=== PATIENT | female | born 1955 | race Caucasian/White ===

== ENCOUNTER 2017-09-24 11:44 | Emergency (ER) | payer BC ==
[~2017-09-24] VITALS: Ht 167.6 cm; Wt 79.4 kg
[2017-09-24] MEDS ORDERED: CLINDAMYCIN PHOS 900MG/ D5W 50 50 ML IV STA (12:07)
[2017-09-24 13:07] LABS: HEMATOCRIT 37.4 % (34.2-44.1); HEMOGLOBIN 12.4 g/dL (12.0-16.0); MEAN CORPUSCULAR HGB CONC 33.2 g/dL (31-35); MEAN CORPUSCULAR VOLUME 87.4 fL (81-99); PLATELET COUNT 212 x10e3/uL (140-360); RED BLOOD COUNT 4.28 x10e6/uL (3.6-5.1); RED CELL DISTRIBUTION WIDTH 13.2 % (11.7-14.4)
[2017-09-24] MEDS ORDERED: KETOROLAC TROMETHAMINE 30 MG/ML VIAL IV STA (13:09)
[2017-09-24 13:27] LABS: EOSINOPHILS % (MANUAL) 1 % (0-7); LYMPHOCYTES % (MANUAL) 11 % (19-48); MONOCYTES % (MANUAL) 1 % (3.4-9.0); NEUTROPHILS % (MANUAL) 87 % (40-74); PLATELET ESTIMATE ADEQUATE; PLATELET MORPHOLOGY COMMENT NORMAL; RBC MORPHOLOGY COMMENT NORMAL
== END 2017-09-24 16:40 | disposition home or self-care (01) ==
LOC: ER 11:44
DX: L02.01 Cutaneous abscess of face (principal)
CPT/HCPCS: 99283; J1885

== ENCOUNTER 2017-09-26 09:40 | Inpatient (IN) | payer BC ==
[~2017-09-26] VITALS: Ht 167.6 cm; Wt 82.2 kg
--- OUTSIDE RECORDS SUMMARY | 2017-09-26 09:42 | XMS REPORT | Continuity of Care Document ---
Author Author [facility] Organization [facility] Address [address] [place] [address] Phone Unavailable Care Team Providers Care Architectural Engineering Teacher Name Role Phone DARRYL TEMPLETON MD PCP Advance Directives No advance directive information available. Problems No problem information available. Medications No medication information available. Social History Smoking Status Start Date Stop Date Never Smoker Hospital Discharge Instructions No hospital discharge instruction information available. Plan of Care Discharge Date 09/24/17 4:40pm Disposition HOME, SELF-CARE Condition at Discharge Stable Instructions/Education Provided Rash - Nonspecific Forms Provided Work/School Excuse Prescriptions See Medication Section Referrals DARRYL TEMPLETON MD Address: [address] [place] [address] Additional Instructions/Education FOLLOW UP WITH PCP TAKE ABT ORDERED Functional Status No functional status information available. Allergies, Adverse Reactions, Alerts Allergen Type Severity Reaction Status Last Updated Penicillin Allergy Severe ra Active 09/24/17 Immunizations No immunization information available. Vital Signs Acute Vital Signs Vital Response Date/Time Height 5 ft 6 in 09/24/2017 12:06pm Weight 175 lb 09/24/2017 12:06pm Body Mass Index 28.2 kg/m^2 09/24/2017 12:06pm Results Laboratory Results Test Name Result Units Flags Reference Collection Date/Time Result Date/ Time Comments White Blood Count 10.07 x10e3/uL 4.8-10.8 09/24/2017 12:42pm 2017 1:08pm Red Blood Count 4.28 x10e6/uL 3.6-5.1 09/24/2017 12:42pm 09/24/2017 1: 08pm Hemoglobin 12.4 g/dL 12.0-16.0 09/24/2017 12:42pm 09/24/2017 1:08pm Hematocrit 37.4 % 34.2-44.1 09/24/2017 12:42pm 09/24/2017 1:08pm Mean Corpuscular Volume 87.4 fL 81-99 09/24/2017 12:42pm 09/24/2017 1: 08pm Mean Corpuscular Hemoglobin 29.0 pg 28-32 09/24/2017 12:42pm 2017 1:08pm Mean Corpuscular Hemoglobin Concent 33.2 g/dL 31-35 09/24/2017 12:42pm 09/24/2017 1:08pm Red Cell Distribution Width 13.2 % 11.7-14.4 09/24/2017 12:42pm 2017 1:08pm Platelet Count 212 x10e3/uL 140-360 09/24/2017 12:42pm 09/24/2017 1: 08pm Differential Total Cells Counted 100 09/24/2017 12:42pm 09/24/2017 1:27pm Neutrophils % (Manual) 87 % H 40-74 09/24/2017 12:42pm 09/24/2017 1: 27pm Lymphocytes % (Manual) 11 % L 19-48 09/24/2017 12:42pm 09/24/2017 1: 27pm Monocytes % (Manual) 1 % L 3.4-9.0 09/24/2017 12:42pm 09/24/2017 1:27pm Eosinophils % (Manual) 1 % 0-7 09/24/2017 12:42pm 09/24/2017 1:27pm Platelet Estimate ADEQUATE 09/24/2017 12:42pm 09/24/2017 1:27pm Platelet Morphology Comment NORMAL 09/24/2017 12:42pm 09/24/2017 1: 27pm Red Cell Morphology Comment NORMAL 09/24/2017 12:42pm 09/24/2017 1: 27pm Procedures No procedure information available. Encounters Encounter Location Arrival/Admit Date Discharge/Depart Date Attending Provider Departed Emergency Room [facility] 09/24/17 11:44am 09/24 4:40pm CORA ZELAYA MD
[2017-09-26 10:20] LABS: BASOPHILS # (AUTO) 0.1 (0.0-0.1); BASOPHILS % 0.4 % (0.0-1.0); EOSINOPHILS # (AUTO) 0.1 (0.0-0.4); EOSINOPHILS % 1.1 % (0.0-6.0); HEMATOCRIT 36.2 % (34.2-44.1); LYMPHOCYTES # (AUTO) 1.4 (1.0-3.2); LYMPHOCYTES % 12.2 % (18.0-39.1); MEAN CORPUSCULAR HEMOGLOBIN 29.3 pg (28-32); MEAN CORPUSCULAR HGB CONC 33.1 g/dL (31-35); MEAN CORPUSCULAR VOLUME 88.3 fL (81-99); MONOCYTES # (AUTO) 0.7 (0.2-0.8); MONOCYTES % 6.1 % (4.4-11.3); NEUTROPHILS # (AUTO) 9.1 (2.1-6.9); NEUTROPHILS % 79.9 % (38.7-80.0); PLATELET COUNT 230 x10e3/uL (140-360); RED CELL DISTRIBUTION WIDTH 13.2 % (11.7-14.4)
[2017-09-26 10:36] LABS: ALANINE AMINOTRANSFERASE 22 IU/L (0-55); ALBUMIN 3.9 g/dL (3.5-5.0); ALBUMIN/GLOBULIN RATIO 1.1 (0.8-2.0); ALKALINE PHOSPHATASE 74 IU/L (40-150); ANION GAP 12.9 mmol/L (8-16); BLOOD UREA NITROGEN 10 mg/dL (7-26); BUN/CREATININE RATIO 14 (6-25); CALCIUM 10.2 mg/dL (8.4-10.2); CARBON DIOXIDE 28 mmol/L (22-29); CHLORIDE 101 mmol/L (98-107); CREATININE, SERUM 0.71 mg/dL (0.57-1.11); EST GLOMERULAR FILTRATION RATE > 60 ML/MIN (60-); GLUCOSE 104 mg/dL (74-118); POTASSIUM 3.9 mmol/L (3.5-5.1); SODIUM 138 mmol/L (136-145)
[2017-09-26] MEDS ORDERED: KETOROLAC TROMETHAMINE 30 MG/ML VIAL IV STA (10:51)
[2017-09-26] MEDS: CEFTRIAXONE SOD 1 GM VIAL IV SCH ×2 (11:06→21:15)
[2017-09-26] MEDS ORDERED: VANCOMYCIN 1GM/NS 250 ML 250 ML IV ONE (11:15)
--- NOTE | 2017-09-26 12:57 | Diagnostic Imaging Report ---
Exam: Maxillofacial CT with IV contrast History:Facial cellulitis, lip swelling Comparison studies: None Technique: Axial images were obtained through the facial region. Coronal and sagittal images reconstructed from the axial data. Intravenous contrast: 100 cc of Omnipaque 300. Findings: Soft tissues: Reactive changes with edema, enhancement in the right upper lip. There is a 2.4 cm rim-enhancing fluid collection in the right paramedian lower lip which extends along the philtrum in the right infranasal soft tissues. There are reactive changes compatible with cellulitis within the buccal periventricular soft tissues, right greater than left. There are no erosive changes in the underlying maxilla to suggest associated ostium myelitis. Lymph nodes: There are prominent enhancing bilateral submandibular (level IB) lymph nodes which measure up to 1.4 cm and enhancing right suprahyoid jugular chain (level IIA) lymph nodes which also measure up to 1.4 cm. Bones: No fractures or bony abnormalities. Dentition: Multiple absent teeth. Root canal changes at the right lateral maxillary incisor with subtle periapical lucency along the tooth root. Additional root canal changes at the left maxillary second premolar is and first molar and left mandibular second premolar. There is moderate alveolar obstruction along the most posterior right mandibular molar. Orbits: Globes: Intact. Extra or intraconal abnormalities: None. Paranasal sinuses: Clear. Included cervical spine: Moderately degenerated disks from C4 to C7 with loss of disc height and disc osteophyte complexes which indent the thecal sac and result in mild canal stenosis at C5-C6. Multilevel foraminal stenosis due to uncovertebral and facet arthrosis (moderate right and mild left at C3-C4, mild left at C4-C5, moderate right and mild left at C5-C6 and mild bilaterally at C6-C7). IMPRESSION: 1. Rim-enhancing 2.4 cm fluid collection compatible with abscess in the right paramedian upper lip which extends to the midline infranasal soft tissues along the philtrum with surrounding cellulitis and phlegmon and regional cellulitic changes in the right greater than left perimandibular soft tissues. 2. Associated reactive bilateral submandibular and right suprahyoid jugular chain lymphadenopathy. Findings discussed with Dr. Laura at 12:45 PM on 09/26/2017. Signed by: Dr. Juan Cheema M.D. on 09/26/2017 12:53 PM
[2017-09-26] MEDS ORDERED: ONDANSETRON HCL INJ 2 MG/ML VIAL IV PRN (13:00)
[2017-09-26] MEDS ORDERED: HYDROMORPHONE 1MG/1ML INJ IV PRN (13:00)
[2017-09-26] MEDS: D5.45%NS/KCL 20MEQ 1,000 ML IV SCH (13:24)
--- OUTSIDE RECORDS SUMMARY | 2017-09-26 14:03 | XMS REPORT ---
Author Author [facility] Address Unknown Phone Unavailable Care Team Providers Care Medical Office Manager Name Role Phone CORA NELSON Unavailable Unavailable Problems This patient has no known problems. Allergies, Adverse Reactions, Alerts This patient has no known allergies or adverse reactions. Medications This patient has no known medications. Results Test Description Test Time Test Comments Text Results Atomic Results Result Comments CT MAX FAC/PARANASAL W [place] [address] Patient Name: MAHI FLOREZ MR #: [id number] : 1955 Age/Sex: 62/F Req #: [id number] Adm Physician: Ordered by: CORA NELSON MD Report #: [id number] Location: ER Room/Bed: Procedure: [id number] CT/CT MAX FAC/PARANASAL W Exam Date: 09/26/17 Exam Time: 1130 REPORT STATUS: Signed Exam: Maxillofacial CT with IV contrast History:Facial cellulitis, lip swelling Comparison studies: None Technique: Axial images were obtained through the facial region. Coronal and sagittal images reconstructed from the axial data. Intravenous contrast: 100 cc of Omnipaque 300. Findings: Soft tissues: Reactive changes with edema, enhancement in the right upper lip. There is a 2.4 cm rim-enhancing fluid collection in the right paramedian lower lip which extends along the philtrum in the right infranasal soft tissues. There are reactive changes compatible with cellulitis within the buccal periventricular soft tissues, right greater than left. There are no erosive changes in the underlying maxilla to suggest associated ostium myelitis. Lymph nodes: There are prominent enhancing bilateral submandibular (level IB) lymph nodes which measure up to 1.4 cm and enhancing right suprahyoid jugular chain (level IIA) lymph nodes which also measure up to 1.4 cm. Bones: No fractures or bony abnormalities. Dentition: Multiple absent teeth. Root canal changes at the right lateral maxillary incisor with subtle periapical lucency along the tooth root. Additional root canal changes at the left maxillary second premolar is and first molar and left mandibular second premolar. There is moderate alveolar obstruction along the most posterior right mandibular molar. Orbits: Globes: Intact. Extra or intraconal abnormalities: None. Paranasal sinuses: Clear. Included cervical spine: Moderately degenerated disks from C4 to C7 with loss of disc height and disc osteophyte complexes which indent the thecal sac and result in mild canal stenosis at C5-C6. Multilevel foraminal stenosis due to uncovertebral and facet arthrosis (moderate right and mild left at C3-C4, mild left at C4-C5, moderate right and mild left at C5-C6 and mild bilaterally at C6-C7). IMPRESSION: 1. Rim-enhancing 2.4 cm fluid collection compatible with abscess in the right paramedian upper lip which extends to the midline infranasal soft tissues along the philtrum with surrounding cellulitis and phlegmon and regional cellulitic changes in the right greater than left perimandibular soft tissues. 2. Associated reactive bilateral submandibular and right suprahyoid jugular chain lymphadenopathy. Findings discussed with Dr. Nelson at 12:45 PM on 2017. Signed by: Dr. Betty Cheema M.D. on 09/26/2017 12:53 PM Dictated By: BETTY CHEEMA MD [id number] Transcribed By: VIVEK on 09/26/17 125 COPY TO: CORA NELSON MD
[2017-09-26 15:14] VITALS: BP 145/85
[2017-09-26 15:15] VITALS: BP 145/85
[2017-09-26] MEDS: HYDROMORPHONE 2MG/ML INJ IV PRN ×2 (15:31→18:13)
[2017-09-26] MEDS: ONDANSETRON HCL 4 MG ORAL DISINTEGRATING TAB SL PRN (19:06)
[2017-09-26 20:00] VITALS: BP 119/58
[2017-09-26] MEDS: VANCOMYCIN 1GM/NS 250 ML 250 ML IV SCH (21:41)
[2017-09-26 22:01] VITALS: BP 119/58
[2017-09-26] MEDS ORDERED: IOPAMIDOL 370 MG/ML 200 ML INFUS..BTL INJ ONE (22:15)
[2017-09-26] MEDS ORDERED: SODIUM CHLORIDE 0.9% 50ML 50 ML ONE (22:15)
[2017-09-27] MEDS: HYDROMORPHONE 2MG/ML INJ IV PRN ×5 (00:21→22:05)
[2017-09-27] MEDS: ONDANSETRON HCL 4 MG ORAL DISINTEGRATING TAB SL PRN (00:24)
[2017-09-27] MEDS: ACETAMINOPHEN 325 MG TAB PO PRN ×2 (00:28→16:35)
[2017-09-27] MEDS: D5.45%NS/KCL 20MEQ 1,000 ML IV SCH (04:23)
[2017-09-27 04:24] VITALS: BP 122/56
[2017-09-27 06:11] LABS: BASOPHILS # (AUTO) 0.1 (0.0-0.1); BASOPHILS % 0.4 % (0.0-1.0); EOSINOPHILS # (AUTO) 0.1 (0.0-0.4); HEMOGLOBIN 10.2 g/dL (12.0-16.0); LYMPHOCYTES # (AUTO) 1.6 (1.0-3.2); LYMPHOCYTES % 13.4 % (18.0-39.1); MEAN CORPUSCULAR HEMOGLOBIN 28.9 pg (28-32); MEAN CORPUSCULAR HGB CONC 31.9 g/dL (31-35); MEAN CORPUSCULAR VOLUME 90.7 fL (81-99); MONOCYTES # (AUTO) 0.9 (0.2-0.8); NEUTROPHILS # (AUTO) 8.9 (2.1-6.9); NEUTROPHILS % 76.9 % (38.7-80.0); PLATELET COUNT 198 x10e3/uL (140-360); RED BLOOD COUNT 3.53 x10e6/uL (3.6-5.1); RED CELL DISTRIBUTION WIDTH 13.1 % (11.7-14.4)
[2017-09-27 06:57] LABS: ANION GAP 11.1 mmol/L (8-16); BLOOD UREA NITROGEN 11 mg/dL (7-26); BUN/CREATININE RATIO 17 (6-25); CALCIUM 9.5 mg/dL (8.4-10.2); CARBON DIOXIDE 28 mmol/L (22-29); CHLORIDE 104 mmol/L (98-107); CREATININE, SERUM 0.65 mg/dL (0.57-1.11); EST GLOMERULAR FILTRATION RATE > 60 ML/MIN (60-); GLUCOSE 108 mg/dL (74-118); POTASSIUM 4.1 mmol/L (3.5-5.1); SODIUM 139 mmol/L (136-145)
[2017-09-27 07:42] VITALS: BP 104/55
[2017-09-27 08:00] VITALS: BP 104/55
[2017-09-27] MEDS: CEFEPIME HCL 1 GM VIAL IV SCH ×2 (08:17→21:54)
[2017-09-27] MEDS: VANCOMYCIN 1GM/NS 250 ML 250 ML IV SCH ×2 (08:57→22:32)
--- NOTE | 2017-09-27 11:38 | History and Physical ---
CHIEF COMPLAINT: Right-sided face swelling, right-sided nose infection and right upper lip infection. HPI: This is a 62-year-old female with no significant past medical history was having right-sided face and nose swelling and infection. Last week on Sunday went to the ER and put on p.o. clindamycin and not getting better. Went to the ER again on Sunday, and continued same medicine with IV antibiotics of 1 dose, but not getting better. Came to my office yesterday with severe swelling and pain on the right side of the face. Nose was swollen. In the upper lip and nose on the right side there is a possible abscess. Pain locally. Fever. Having mild nausea. Unable to eat because of the pain and swelling on the face. No chest pain. No shortness of breath. No diarrhea. No leg pain. No leg swelling. PAST MEDICAL HISTORY: None. PAST SURGICAL HISTORY: None. HABITS: Denies smoking, alcohol. FAMILY HISTORY: Noncontributory. MEDICATIONS: Clindamycin and Bactroban ointment. ALLERGIES: NO KNOWN DRUG ALLERGIES. REVIEW OF SYSTEMS GENERAL: Denies weakness. HEENT: No diplopia. No headache. CARDIOPULMONARY: No chest pain. No cough. GI: No hematemesis, nausea, vomiting, or diarrhea. No constipation. GENITOURINARY: Denies dysuria or hematuria. MUSCULOSKELETAL: No joint pain. No cyanosis. NEURO: No focal weakness or seizure. PHYSICAL EXAMINATION GENERAL: A 62-year-old female who is alert and oriented times 3. No gross deficits. VITALS: Temperature 100.2, pulse 100, respiratory rate 18, blood pressure 130/84. HEENT: Head with no trauma. On the face right side between the right nostril and upper lip, there is an abscess. There is tenderness. There is swelling. There is redness. The face is swollen. Eyes are normal. Pupils bilaterally equal reacting to light. Extraocular muscles intact. NECK: Supple. No JVD. No carotid bruit. SKIN: Dry. LUNGS: Clear to auscultation and percussion bilaterally. No added sounds. HEART: S1 and S2. Regular rate and rhythm. No evidence of murmur. ABDOMEN: Soft and nontender. No guarding. No rigidity. EXTREMITIES: No edema. Peripheral pulses were normal. NEURO: Grossly nonfocal. CT of the head shows abscess, 2 x 3 cm on the right nostril and upper lip. CBC mildly elevated white count. CMP normal. ASSESSMENT: Nares and face right-sided cellulitis with abscess. PLAN: Admit the patient to medical floor. IV vancomycin and IV Rocephin. Plastic surgery consult with for possible I and D. ID consult with Dr. Hines. Case discussed with the patient of condition and prognosis. Pain medication, Tylenol 500 mg q.6 h. p.r.n. for fever. Job#: [id number] RAHAT
[2017-09-27] MEDS ORDERED: BACITRACIN 50,000 UNIT VIAL ONE (11:50)
[2017-09-27] MEDS ORDERED: MUPIROCIN 2% OINT 22 GM TUBE ONE (11:50)
[2017-09-27] MEDS ORDERED: LIDOCAINE 1% W/EPINEPHRINE 20 ML VIAL ONE (12:00)
[2017-09-27] MEDS ORDERED: LIDOCAINE HCL 1% LOCAL INJ 20 ML VIAL ONE (12:00)
--- NOTE | 2017-09-27 12:26 | Consultation ---
DATE OF CONSULTATION: September 27, 2017 This is a patient of Dr. Alden Mendes. This is a 62-year-old female located at [facility] in [place]. HISTORY OF PRESENT ILLNESS: Ms. Simental is a pleasant 62-year-old female who is admitted to [facility] complaining of right upper lip swelling and tenderness, which is progressively getting worse. It started about 8 days ago. Now, pain is radiating to the jaw on the right side and also started to cause some right ear infection. No nausea, vomiting, fever, chills, chest pain, or shortness of breath with it. Patient reported to emergency room, admitted. CT of the face shows enhancing 2.4-cm fluid collection compatible with abscess in the right paramedian upper lip, which extends to the midline infranasal soft tissue along the philtrum with surrounding cellulitis and phlegmon and regional cellulitic changes in the right greater than left perimandibular soft tissue. Also, patient has no problem with breathing, but has not been able to eat for the past few days secondary to pain. PAST MEDICAL HISTORY: Patient denied significant past medical history. ALLERGIES: PATIENT IS ALLERGIC TO PENICILLIN. LABORATORY AND DIAGNOSTIC STUDIES: White count 11.56 and platelet count of 198. Creatinine is 0.65. CT of the face as mentioned above. Blood culture is pending. MEDICATIONS: Medication list has been reviewed. As far as infectious disease's point of view, the patient is on vancomycin and cefepime. REVIEW OF SYSTEMS: No nausea, vomiting, fever, chills, chest pain, or shortness of breath. She has difficulty eating and chewing, but breathing has not been compromised. PHYSICAL EXAMINATION GENERAL: Alert, oriented, and pleasant, in bed, in no acute distress. VITAL SIGNS: Temperature is 100.6, T-max was reaching 101 this morning at about 7:42, pulse 67, respirations 18, and blood pressure is 145/85. HEENT: Moist. Upper lip is swollen and it seems to be extending a little bit towards the nose and maybe a little bit towards the cheeks, but it is tender. CV: S1 and S2. CHEST: Equal expansion, no acute distress. ABDOMEN: Soft, nontender, and nondistended. Bowel sounds positive. EXTREMITIES: Moves all extremities. ASSESSMENT AND PLAN: A pleasant 62-year-old female with cellulitis and abscess of the upper lip, seems like more located towards the right. The plan is for the I and D of the abscess. We will continue with the antibiotics at the present time that she is on and then follow up patient, follow up with the cultures, and follow up with the blood culture as well. Further management of this patient is based on daily findings on laboratory and physical examination. I want to thank you for this consult and will follow up with up you. This case was discussed with Dr. Hines in detail. Dictated by: Elio Kirk Job#: [id number] SUB
[2017-09-27] MEDS ORDERED: ACETAMINOPHEN 1000 MG/100 ML 100 ML IV ONE (12:31)
--- NOTE | 2017-09-27 14:48 | Consultation ---
DATE OF CONSULTATION: September 26, 2017 PLASTIC SURGERY CONSULTATION PHYSICIAN REQUESTING CONSULTATION: Dr. Vinh Mendes. REASON FOR CONSULTATION: Facial abscess. HISTORY OF PRESENT ILLNESS: The patient is a 62-year-old female who states that approximately 10 days ago she started to develop pain and swelling on the right lower area of the nostril. She denies any antecedent pimple, puncture wound or any other antecedent event, which could have accounted for the development of the pain and swelling. She states it progressed over the course of several days. She then noted the right upper lip became very swollen and painful as well. She came to the emergency room today and was found on CT scan to have an abscess involving the deep tissues of the right upper lip and the nasal floor. Consultation is now requested of plastic surgery for this condition. PAST MEDICAL AND PAST SURGICAL HISTORY: Noncontributory to the current problem. She is a smoker. LABS: Admission laboratory shows an elevated white blood cell count to 11.5. PHYSICAL EXAMINATION: On pertinent physical exam, the right upper lip is tensely swollen. It is exquisitely tender to palpation. There are swelling and erythema of the base of the right nostril as well. Intraoral exam is limited due to tenderness, but there does not appear to be any intraoral extension, but note is made of dental caries. IMPRESSION: Facial abscess. PLAN: The patient was started on intravenous antibiotics. She will be kept n.p.o. after midnight tonight. Then she will have incision and drainage in the morning. Thank you for allowing me to participate in the care of your patient. Job#: [id number]
--- NOTE | 2017-09-27 14:53 | Operative Report ---
DATE OF PROCEDURE: September 27, 2017 PREOPERATIVE DIAGNOSIS: Right facial abscess, subfascial. POSTOPERATIVE DIAGNOSIS: Right facial abscess, subfascial. PROCEDURE PERFORMED: Incision and drainage of subfascial facial abscess. ANESTHESIA: IV sedation/local. HISTORY: Patient is a 62-year-old female who was admitted yesterday with diagnosis of a facial abscess. The risks, benefits and alternatives of treatment were discussed with the patient. She is prepared to undergo the procedures outlined. DETAILS OF PROCEDURE: Patient was marked preoperatively in the holding area. She was brought to the operating theater. After the induction of adequate IV sedation, she was prepped and draped in a supine position. A time out was performed. The procedure was begun by infiltrating the entire floor of the right nostril and the right upper lip area with 1% Xylocaine with epinephrine, approximately 10 mL was used. After waiting an appropriate amount of time for maximum vasoconstrictive and maximum analgesic effect, an incision was made in the base of the nostril through the skin and subcutaneous tissues. A hemostat was then used to puncture through the fascia and get into the subfascial area. The abscess cavity was immediately entered, and purulent exudate was encountered. This was cultured and sent for both aerobic and anaerobic studies. At this point, the hemostat was used to break up all loculations all the way down to the right upper lip area. Using a 60-mL syringe and an Angiocath, the abscess cavity was irrigated with antibiotic-containing solution, approximately 150 mL was utilized until the effluent was clear. At this point, 1/4-inch packing was then placed into the wound and abscess cavity. A dressing and Bactroban ointment were applied. Patient was returned to the recovery room in satisfactory condition. Estimated blood loss for the procedure was 10 to 15 mL. She tolerated the procedure well. Job#: [id number]
[2017-09-27 15:53] VITALS: BP 107/47
[2017-09-27] MEDS ORDERED: PROPOFOL IV EMULSION 10 MG/ML 20 ML VIAL ONE (17:54)
[2017-09-27] MEDS ORDERED: MIDAZOLAM HCL 2 MG/2 ML VIAL ONE (18:30)
[2017-09-27] MEDS ORDERED: FENTANYL CITRATE/PF 100MCG/2 ML INJ ONE (18:30)
[2017-09-27 20:00] VITALS: BP 93/51
[2017-09-27 22:37] VITALS: BP 93/51
[2017-09-28] VITALS (7 sets, daily range): BP systolic 112–135; BP diastolic 53–59
[2017-09-28] MEDS: D5.45%NS/KCL 20MEQ 1,000 ML IV SCH (01:02)
[2017-09-28] MEDS: ACETAMINOPHEN 325 MG TAB PO PRN ×2 (01:02→17:40)
[2017-09-28 06:53] LABS: BASOPHILS % 0.4 % (0.0-1.0); EOSINOPHILS # (AUTO) 0.2 (0.0-0.4); EOSINOPHILS % 1.7 % (0.0-6.0); HEMATOCRIT 31.5 % (34.2-44.1); HEMOGLOBIN 10.2 g/dL (12.0-16.0); LYMPHOCYTES # (AUTO) 1.2 (1.0-3.2); LYMPHOCYTES % 11.1 % (18.0-39.1); MEAN CORPUSCULAR HEMOGLOBIN 28.5 pg (28-32); MEAN CORPUSCULAR HGB CONC 32.4 g/dL (31-35); MONOCYTES # (AUTO) 0.7 (0.2-0.8); MONOCYTES % 6.8 % (4.4-11.3); NEUTROPHILS # (AUTO) 8.6 (2.1-6.9); NEUTROPHILS % 79.5 % (38.7-80.0); PLATELET COUNT 200 x10e3/uL (140-360); RED BLOOD COUNT 3.58 x10e6/uL (3.6-5.1); RED CELL DISTRIBUTION WIDTH 12.7 % (11.7-14.4)
[2017-09-28 07:08] LABS: ANION GAP 11.9 mmol/L (8-16); BLOOD UREA NITROGEN 8 mg/dL (7-26); BUN/CREATININE RATIO 13 (6-25); CALCIUM 9.3 mg/dL (8.4-10.2); CARBON DIOXIDE 28 mmol/L (22-29); CHLORIDE 103 mmol/L (98-107); CREATININE, SERUM 0.62 mg/dL (0.57-1.11); EST GLOMERULAR FILTRATION RATE > 60 ML/MIN (60-); GLUCOSE 108 mg/dL (74-118); POTASSIUM 3.9 mmol/L (3.5-5.1); SODIUM 139 mmol/L (136-145)
[2017-09-28] MEDS: HYDROMORPHONE 2MG/ML INJ IV PRN ×2 (08:03→17:40)
[2017-09-28] MEDS: CEFEPIME HCL 1 GM VIAL IV SCH ×2 (08:04→20:00)
[2017-09-28] MEDS ORDERED: LIDOCAINE 1% W/EPINEPHRINE 20 ML VIAL INJ NR (09:00)
[2017-09-28] MEDS ORDERED: MUPIROCIN 2% OINT 22 GM TUBE TOP ONE (09:00)
[2017-09-28] MEDS ORDERED: LIDOCAINE HCL 1% 2 ML AMP INJ ONE (09:00)
[2017-09-28] MEDS ORDERED: EPINEPHRINE HCL SYRINGE IV ONE (09:00)
[2017-09-28] MEDS: VANCOMYCIN 1GM/NS 250 ML 250 ML IV SCH ×2 (09:27→21:00)
[2017-09-28] MEDS: ONDANSETRON HCL 4 MG ORAL DISINTEGRATING TAB SL PRN (17:40)
[2017-09-29] VITALS (8 sets, daily range): BP systolic 119–137; BP diastolic 55–61
[2017-09-29] MEDS: PANTOPRAZOLE SOD 40 MG TABEC PO SCH (08:21)
[2017-09-29] MEDS ORDERED: BISACODYL 5 MG TAB EC PO PRN (10:15)
[2017-09-29] MEDS: VANCOMYCIN 1GM/NS 250 ML 250 ML IV SCH ×2 (10:32→20:15)
[2017-09-29] MEDS: CEFEPIME HCL 1 GM VIAL IV SCH ×2 (10:32→20:00)
[2017-09-29 10:35] LABS: BASOPHILS # (AUTO) 0.1 (0.0-0.1); BASOPHILS % 0.7 % (0.0-1.0); EOSINOPHILS # (AUTO) 0.2 (0.0-0.4); EOSINOPHILS % 3.2 % (0.0-6.0); HEMATOCRIT 31.8 % (34.2-44.1); HEMOGLOBIN 10.3 g/dL (12.0-16.0); LYMPHOCYTES % 14.8 % (18.0-39.1); MEAN CORPUSCULAR HEMOGLOBIN 28.5 pg (28-32); MEAN CORPUSCULAR HGB CONC 32.4 g/dL (31-35); MEAN CORPUSCULAR VOLUME 87.8 fL (81-99); MONOCYTES # (AUTO) 0.3 (0.2-0.8); MONOCYTES % 4.8 % (4.4-11.3); NEUTROPHILS # (AUTO) 5.3 (2.1-6.9); NEUTROPHILS % 76.1 % (38.7-80.0); PLATELET COUNT 221 x10e3/uL (140-360); RED BLOOD COUNT 3.62 x10e6/uL (3.6-5.1); RED CELL DISTRIBUTION WIDTH 12.6 % (11.7-14.4)
[2017-09-29] MEDS: CHLORHEXIDINE GLUCONATE 0.12% SOLN 473 ML BTL MT SCH ×3 (13:21→20:15)
[2017-09-30 00:14] VITALS: BP 141/63
[2017-09-30 05:40] VITALS: BP 125/60
[2017-09-30 06:47] LABS: BASOPHILS # (AUTO) 0.1 (0.0-0.1); BASOPHILS % 0.8 % (0.0-1.0); EOSINOPHILS # (AUTO) 0.3 (0.0-0.4); EOSINOPHILS % 4.4 % (0.0-6.0); HEMATOCRIT 31.6 % (34.2-44.1); HEMOGLOBIN 10.3 g/dL (12.0-16.0); LYMPHOCYTES # (AUTO) 1.3 (1.0-3.2); LYMPHOCYTES % 20.7 % (18.0-39.1); MEAN CORPUSCULAR HEMOGLOBIN 28.4 pg (28-32); MEAN CORPUSCULAR HGB CONC 32.6 g/dL (31-35); MEAN CORPUSCULAR VOLUME 87.1 fL (81-99); MONOCYTES # (AUTO) 0.5 (0.2-0.8); MONOCYTES % 7.7 % (4.4-11.3); NEUTROPHILS # (AUTO) 4.1 (2.1-6.9); NEUTROPHILS % 66.1 % (38.7-80.0); PLATELET COUNT 232 x10e3/uL (140-360); RED BLOOD COUNT 3.63 x10e6/uL (3.6-5.1); RED CELL DISTRIBUTION WIDTH 12.6 % (11.7-14.4)
[2017-09-30 07:14] LABS: ALANINE AMINOTRANSFERASE 18 IU/L (0-55); ALBUMIN 3.1 g/dL (3.5-5.0); ALBUMIN/GLOBULIN RATIO 0.9 (0.8-2.0); ALKALINE PHOSPHATASE 62 IU/L (40-150); ANION GAP 12.1 mmol/L (8-16); BLOOD UREA NITROGEN 10 mg/dL (7-26); BUN/CREATININE RATIO 15 (6-25); CALCIUM 9.9 mg/dL (8.4-10.2); CARBON DIOXIDE 31 mmol/L (22-29); CHLORIDE 105 mmol/L (98-107); CREATININE, SERUM 0.65 mg/dL (0.57-1.11); EST GLOMERULAR FILTRATION RATE > 60 ML/MIN (60-); GLUCOSE 107 mg/dL (74-118); POTASSIUM 4.1 mmol/L (3.5-5.1); SODIUM 144 mmol/L (136-145)
[2017-09-30 07:36] VITALS: BP 121/58
[2017-09-30 07:45] VITALS: BP 121/58
[2017-09-30] MEDS: PANTOPRAZOLE SOD 40 MG TABEC PO SCH (09:30)
[2017-09-30] MEDS: CEFEPIME HCL 1 GM VIAL IV SCH (09:30)
[2017-09-30] MEDS: VANCOMYCIN 1GM/NS 250 ML 250 ML IV SCH (09:31)
[2017-09-30] MEDS: CHLORHEXIDINE GLUCONATE 0.12% SOLN 473 ML BTL MT SCH ×2 (09:31→13:22)
[2017-09-30 11:56] VITALS: BP 159/70
[2017-09-30] MEDS ORDERED: DOXYCYCLINE HY100 MG PO (14:36)
[2017-09-30] MEDS ORDERED: CIPRO500 MG PO (14:36)
[2017-09-30] MEDS ORDERED: HYDROMORPHONE 2MG/ML INJ IV NR (14:45)
== END 2017-09-30 15:32 | disposition home or self-care (01) | DRG 155 ==
LOC: ER 09:40 → ERHOLD 14:00 → MED/SURG3 14:30
PROVIDERS: ADMIT Internal Medicine; ATTEND Internal Medicine
PROC: 0J910ZX Drainage of Face Subcutaneous Tissue and Fascia, Open Approach, Diagnostic (ICD-10-PCS; principal; 2017-09-27 12:03)
DX: J34.0 Abscess, furuncle and carbuncle of nose (principal); L03.211 Cellulitis of face; M72.8 Other fibroblastic disorders; Z85.3 Personal history of malignant neoplasm of breast; Z88.0 Allergy status to penicillin; B95.62 Methicillin resistant Staphylococcus aureus infection as the cause of diseases classified elsewhere; F17.210 Nicotine dependence, cigarettes, uncomplicated; K02.9 Dental caries, unspecified
CPT/HCPCS: 36415; 70487; 80048; 80053; 80202; 83605; 85025; 87040; 87071; 87075; 87186; 87205; 96367; 96375; 96376; 99284; J0692; J0696; J1885; J2001; J2250; J3370; Q9967

== ENCOUNTER 2021-06-20 16:44 | Emergency (ER) | payer BC ==
[~2021-06-20] VITALS: Ht 167.6 cm; Wt 90.7 kg
[~2021-06-20 16:44] MED LIST: CIPRO500 MG PO; DOXYCYCLINE HY100 MG PO
== END 2021-06-20 18:07 | disposition left against medical advice (07) ==
LOC: ER 16:52
DX: L03.211 Cellulitis of face (principal)
CPT/HCPCS: 99282

== ENCOUNTER 2021-06-20 23:14 | Emergency (ER) | payer BC ==
[~2021-06-20] VITALS: Ht 167.6 cm; Wt 90.7 kg
== END 2021-06-20 23:45 | disposition home or self-care (01) ==
LOC: ER 23:32
DX: L03.211 Cellulitis of face (principal); K02.9 Dental caries, unspecified